=== PATIENT | male | born 1940 | race Caucasian/White ===

== ENCOUNTER 2021-04-05 11:00 | Emergency (ER) | payer MEDICARE, BC ==
[~2021-04-05] VITALS: Ht 170.2 cm; Wt 70.3 kg
[2021-04-05] MEDS ORDERED: HYDROCODONE/APAP 5-325MG TABLET PO ONE (11:15)
[2021-04-05] MEDS ORDERED: IBUPROFEN 800 MG TABLET PO ONE (11:15)
--- NOTE | 2021-04-05 11:35 | NUR ---
Pt states taht 3 days ago, a door struck the achilles tendon on his left leg, now c/o severe pain 8.5/10 in tendon and left dorsal foot, additionally having trouble walking on it.
--- NOTE | 2021-04-05 11:36 | NUR ---
Pt refused the [place] at this time, wants to see how the [place] does alone first.
[2021-04-05] MEDS ORDERED: IBUPROFEN 800 MG TABLET ONE (11:37)
[2021-04-05] MEDS ORDERED: HYDROCODONE/APAP 5-325MG TABLET ONE (11:37)
[2021-04-05] MEDS ORDERED: IBUP-1955 PO (12:03)
[2021-04-05] MEDS ORDERED: HYDR-4209 PO (12:03)
--- NOTE | 2021-04-05 12:20 | NUR ---
Gave pt RX and d/c instructions, pt verbalized understanding. Pt refused crutches.
== END 2021-04-05 12:26 | disposition home or self-care (01) ==
LOC: ER 11:00
DX: S93.402A Sprain of unspecified ligament of left ankle, initial encounter (principal); S90.512A Abrasion, left ankle, initial encounter; W20.8XXA Other cause of strike by thrown, projected or falling object, initial encounter; Y92.89 Other specified places as the place of occurrence of the external cause; F17.200 Nicotine dependence, unspecified, uncomplicated
CPT/HCPCS: 73610; 73630; A4663